=== PATIENT | female | born 1975 | race Caucasian/White ===

== ENCOUNTER 2019-11-08 16:04 | Inpatient (IN) | payer OTHER ==
[~2019-11-08] VITALS: Ht 162.6 cm; Wt 69.4 kg
[2019-11-08 16:04] VITALS: BP 159/102
[2019-11-08 16:39] LABS: ABSOLUTE NEUTROPHILS 3.7 thou/uL (1.4-8.2); BASOPHILS 1.2 % (0.0-2.0); EOSINOPHILS 1.5 % (0.0-3.0); HEMATOCRIT 41.3 % (37.0-47.0); HEMOGLOBIN 14.4 gm/dL (12.0-15.0); LYMPHOCYTES 35.5 % (24.0-44.0); MCH 33.3 pg (26.0-34.0); MCV 95.1 fL (80.0-100.0); MONOCYTES 8.5 % (1.0-8.0); PLATELET COUNT 492 thou/uL (150-400); POLYS 53.3 % (36.0-66.0); RBC 4.34 mil/uL (4.20-5.00); RDW 13.9 % (10.5-14.5); WBC 6.9 thou/uL (4.0-11.0)
[2019-11-08 16:48] LABS: ANION GAP 10 mmol/L (7-16); BUN 8 mg/dL (7-18); CALCIUM 8.3 mg/dL (8.5-10.1); CHLORIDE 95 mmol/L (98-107); CO2 25 mmol/L (21-32); CREATININE 0.7 mg/dL (0.6-1.0); GLUCOSE 98 mg/dL (74-106); POTASSIUM 3.4 mmol/L (3.5-5.1); SODIUM 130 mmol/L (136-145)
[2019-11-08 16:55] LABS: APTT 28.6 Seconds (24.5-32.8); PROTIME 10.4 Seconds (9.3-11.4)
[2019-11-08 16:57] LABS: ALBUMIN 3.7 g/dL (3.4-5.0); SGOT 23 U/L (15-37); SGPT 20 U/L (30-65); TOTAL BILIRUBIN 0.5 mg/dL (0.2-1.0); TROPONIN-I <0.06 ng/mL (<0.06)
[2019-11-08] MEDS ORDERED: ACYCLOVIR 200200 MG PO (19:51)
[2019-11-08 20:17] LABS: CHOLESTEROL 215 mg/dL (<200); HDL CHOLESTEROL 89 mg/dL (>40); LDL CHOLESTEROL 109 mg/dL (<100); TC:HDL 2.4 Ratio (Not establshd); TRIGLYCERIDE 88 mg/dL (<150); VLDL 18 mg/dL (<40)
[2019-11-08 22:08] VITALS: BP 122/79
[2019-11-08 22:58] VITALS: BP 122/79
[2019-11-08 23:15] VITALS: BP 139/80
--- NOTE | 2019-11-09 01:30 | NUR ---
PATIENT ARRIVED VIA WHEELCHAIR FROM ED AT 2315 WITH RN. ALERT AND ORIENTED X4. WEAKNESS ON LEFT SIDE. ONE ASSIST TO THE BATHROOM. CONTINUOUS IV MEDS STARTED. DENIES PAIN. COOPERATIVE AND PLEASANT. WILL MONITOR.
[2019-11-09 06:28] LABS: HEMATOCRIT 40.5 % (37.0-47.0); HEMOGLOBIN 13.8 gm/dL (12.0-15.0); MCH 32.5 pg (26.0-34.0); MCHC 34.2 g/dL (28.0-37.0); MCV 95.1 fL (80.0-100.0); RBC 4.26 mil/uL (4.20-5.00); RDW 13.4 % (10.5-14.5); WBC 6.4 thou/uL (4.0-11.0)
[2019-11-09 06:40] VITALS: BP 108/76
[2019-11-09 06:49] LABS: CALCIUM 8.8 mg/dL (8.5-10.1); CREATININE 0.6 mg/dL (0.6-1.0); MAGNESIUM 2.1 mg/dL (1.8-2.4); POTASSIUM 3.7 mmol/L (3.5-5.1)
[2019-11-09 12:27] VITALS: BP 134/80
--- NOTE | 2019-11-09 15:55 | NUR ---
ASSUMED CARE PT SHIFT CHANGE. ASSESSMENTS CHARTED. MEDS GIVEN PER MAR. PT ALERT AND ORIENTED. VSS. DENIES PAIN. PT STATES STILL FEELS LIKE HEAD IS "BOBBLE HEAD" AND STILL SOME WEAKNESS ON LEFT SIDE, BUT PT STATES BETTER THAN YESTERDAY. PT SEEN BY NEURO- MRI ORDERS, WILL COMMUNICATE RESULTS TO PHYSICIAN. PT IS HOPEFUL FOR DISCHARGE TODAY. WILL CONT TO MONITOR AND FOLLOW POC.
[2019-11-09 16:00] VITALS: BP 137/89
[2019-11-09] MEDS ORDERED: PLAVIX 75 MG TA75 M1 PO (18:51)
[2019-11-09] MEDS ORDERED: ASPIR 8181 MG PO (18:51)
[2019-11-09] MEDS ORDERED: LIPITOR40 MG PO (18:51)
[2019-11-09 18:55] VITALS: BP 137/89
[2019-11-10 02:05] LABS: GLYCOHEMOGLOBIN (HGB A1C) 4.9 % (4.8-5.6)
== END 2019-11-09 19:18 | disposition home or self-care (01) | DRG 65 ==
LOC: ER 16:04 → 2N 20:44 → EROBS 20:44 → 2N 22:58
PROVIDERS: Emergency Medicine; Nurse Practitioner Family; ADMIT Hospitalist; ATTEND Hospitalist
DX: I63.89 Other cerebral infarction (principal); G81.94 Hemiplegia, unspecified affecting left nondominant side; I10 Essential (primary) hypertension; E78.5 Hyperlipidemia, unspecified; E87.6 Hypokalemia; E11.9 Type 2 diabetes mellitus without complications; F41.9 Anxiety disorder, unspecified; Z79.899 Other long term (current) drug therapy
CPT/HCPCS: 10081

== ENCOUNTER → 2019-11-18 | Outpatient (CLI) | payer OTHER ==
[~2019-11-18] MED LIST: ACYCLOVIR 200200 MG PO; ASPIR 8181 MG PO; LIPITOR40 MG PO; PLAVIX 75 MG TA75 M1 PO
== END ==
LOC: SJCVCIMAG 12:29
PROVIDERS: ATTEND Internal Medicine
DX: I34.0 Nonrheumatic mitral (valve) insufficiency (principal); F17.200 Nicotine dependence, unspecified, uncomplicated; Z86.73 Personal history of transient ischemic attack (TIA), and cerebral infarction without residual deficits